=== PATIENT | female | born 1995 | race Asian ===

== ENCOUNTER 2024-03-09 06:08 | Emergency (ER) | payer OTHER ==
[~2024-03-09] VITALS: Ht 175.3 cm; Wt 62.6 kg
[2024-03-09 06:26] VITALS: BP_SYST 142; PULSE 119; RESP 28; TEMP 98.2; O2SAT 99
[2024-03-09 06:39] VITALS: BP_SYST 142; RESP 30; TEMP 98.4; O2SAT 98
[2024-03-09 06:51] LABS: BASOPHILS % (AUTO) 0.2 % (0.0-2.0); EOSINOPHILS # (AUTO) 0.1 K/uL (0.0-0.4); EOSINOPHILS % (AUTO) 1.2 % (0.0-4.0); HEMATOCRIT 40.3 % (36-48); HEMOGLOBIN 13.7 g/dL (12.0-16.0); LYMPHOCYTES # (AUTO) 3.2 K/uL (1.0-5.5); LYMPHOCYTES % (AUTO) 44.6 % (20.5-51.5); MEAN CORPUSCULAR HEMOGLOBIN 28 pg (27-31); MEAN CORPUSCULAR HGB CONC 34 % (32-36); MEAN CORPUSCULAR VOLUME 82 fL (79.0-98.0); MONOCYTES # (AUTO) 0.8 K/uL (0.0-1.0); MONOCYTES % (AUTO) 11.2 % (1.7-9.3); NEUTROPHILS # (AUTO) 3.1 K/uL (1.8-7.7); NEUTROPHILS % (AUTO) 42.8 % (40.0-70.0); PLATELET COUNT (AUTO) 288 K/uL (130-430); RED BLOOD CELL COUNT(AUTO) 4.93 MIL/uL (4.2-6.2); RED CELL DISTRIBUTION WIDTH 12.8 % (9.0-15.0); WHITE BLOOD COUNT (AUTO) 7.3 K/uL (4.8-10.8)
[2024-03-09 07:04] LABS: SERUM HCG (QUALITATIVE) NEGATIVE (NEGATIVE)
[2024-03-09 07:16] LABS: ALANINE AMINOTRANSFERASE 68 U/L (12-78); ALBUMIN 3.8 g/dL (3.4-4.8); ANION GAP 10 (5-15); ASPARTATE AMINOTRANSFERASE 24 U/L (10-37); BILIRUBIN,DIRECT 0.1 mg/dL (0.0-0.3); CALCIUM 9.4 mg/dL (8.4-11.0); CARBON DIOXIDE 29 mmol/L (23-29); CHLORIDE 103 mmol/L (98-107); CREATININE 0.61 mg/dL (0.55-1.30); FREE T4 (FREE THYROXINE) 4.8 ng/dL (0.6-1.6); GFR AFRICAN AMERICAN 150 mL/min (>90); GLUCOSE 73 mg/dL (74-106); POTASSIUM 3.4 mmol/L (3.5-5.1); SODIUM SERUM 142 mmol/L (136-145); TOTAL BILIRUBIN 0.4 mg/dL (0.0-1.0); TOTAL PROTEIN, SERUM 8.1 g/dL (6.4-8.3); UREA NITROGEN, BLOOD 6 mg/dL (8-21)
[2024-03-09 07:18] LABS: GFR NON AFRICAN-AMERICAN 124 mL/min (>90)
[2024-03-09 07:39] LABS: PROTHROMBIN TIME 10.2 SECS (9.5-12.5)
[2024-03-09 08:07] LABS: THYROID STIMULATING HORMONE < 0.01 uIu/mL (0.34-4.82)
[2024-03-09] MEDS ORDERED: ATEN-41 PO (08:31)
[2024-03-09 08:58] VITALS: PULSE 93
== END 2024-03-09 08:59 | disposition home or self-care (01) ==
LOC: SED 06:08
DX: E05.00 Thyrotoxicosis with diffuse goiter without thyrotoxic crisis or storm (principal); Z79.899 Other long term (current) drug therapy
CPT/HCPCS: 99285; 70491; 80076; 80048; 84703; 84439; 84443; 85025; 85610; 85730; 36415; 76536; 83605; Q9967